=== PATIENT | female | born 1990 | race Caucasian/White ===

== ENCOUNTER 2018-12-02 21:43 | Emergency (ER) | payer OTHER ==
[~2018-12-02] VITALS: Ht 154.9 cm; Wt 59.0 kg
[2018-12-02] MEDS ORDERED: TDAP [DIPH/PERTUSSIS/TET] 0.5 ML VIAL IM ONE ×2 (22:13→22:30)
--- NOTE | 2018-12-02 22:27 | NUR ---
BIBSELF C/O LT FIFTH FINGER LAC, S/P CUT FROM BLADE. PT BUILDING PRESSURE WASHER BLEEDING STOPPED. VS STABLE AFEBRILE, PLACED ON ER BED 10, SEEN AND EVAL DONE BY XIMENA SCHILLING ORDERED.
[2018-12-02] MEDS ORDERED: CEPHALEXIN MONOHYDRATE 500 MG CAPSULE PO ONE ×2 (22:52→23:00)
--- NOTE | 2018-12-02 23:00 | NUR ---
Patient discharged to home in stable condition. Written Rx and verbal after care instructions given. Patient verbalizes understanding of instruction. Tx on lt fifth finger dressing applied.
[2018-12-02 23:03] VITALS: BP 122/78
== END 2018-12-02 23:04 | disposition home or self-care (01) ==
LOC: ER 21:45
DX: S61.307A Unspecified open wound of left little finger with damage to nail, initial encounter (principal); W26.8XXA Contact with other sharp object(s), not elsewhere classified, initial encounter; Y93.89 Activity, other specified; Y92.89 Other specified places as the place of occurrence of the external cause; Y99.8 Other external cause status
CPT/HCPCS: 90715